=== PATIENT | female | born 1990 | race Caucasian/White ===

== ENCOUNTER 2018-05-04 15:04 | Emergency (ER) | payer SELFPAY ==
[~2018-05-04] VITALS: Ht 157.5 cm; Wt 59.1 kg
[2018-05-04 15:06] VITALS: Ht 157.5 cm; Wt 59.1 kg
[2018-05-04] MEDS ORDERED: ONDANSETRON (ODT) 4 MG TAB ODT STA (16:31)
[2018-05-04] MEDS ORDERED: HYDROCODONE/APAP (5/325) TAB PO ONE (17:00)
[2018-05-04] MEDS ORDERED: HYDR-4011 PO (20:35)
[2018-05-04] MEDS ORDERED: IBUP-1542 PO (20:35)
[2018-05-04] MEDS ORDERED: METH750T93 PO (20:36)
[2018-05-04 20:49] VITALS: BP 123/70; PULSE 73; RESP 18
--- NOTE | 2018-05-04 21:07 | ERD ---
ER Documentation Chief Complaint Chief Complaint right arm stiffness/pain started 20 minustes ago HPI 27yo female presents for right arm stiffness and pain x20 minutes. Pain rated 10/10. She admits to nausea and vomiting. She denies CP, abdominal pain. She took ibuprofen 800mg without relief. ROS All systems reviewed and are negative except as per history of present illness. Medications Home Meds Active Scripts Methocarbamol* (Robaxin*) 750 Mg Tablet, 750 MG PO TID PRN for muscle pain, #30 TAB Prov:PHI LICONA DO 05/04/18 Ibuprofen* (Motrin*) 600 Mg Tab, 600 MG PO Q6H PRN for PAIN, #30 TAB Prov:PHI LICONA DO 05/04/18 Hydrocodone/Acetaminophen (Hope 5-325 Tablet) 1 Each Tablet, 1 TAB PO Q6H PRN for PAIN, #10 TAB Prov:PHI LICONA DO 05/04/18 Allergies Allergies: Coded Allergies: No Known Allergy (Unverified , 05/04/18) PMhx/Soc Medical and Surgical Hx: pt denies Medical Hx History of Surgery: Yes (hx of right arm cast) Hx Neurological Disorder: No Hx Respiratory Disorders: No Hx Cardiac Disorders: No Hx Psychiatric Problems: No Hx Miscellaneous Medical Probl: No Hx Alcohol Use: Yes (occassionally) Hx Substance Use: No Hx Tobacco Use: No Physical Exam Vitals Vital Signs Date Temp Pulse Resp B/P (MAP) Pulse Ox O2 O2 Flow FiO2 Time Delivery Rate 05/04/18 98.0 73 18 123/70 98 Room Air 20:49 (87) 05/04/18 97.7 147 20 135/85 100 15:06 (102) Physical Exam Const: No acute distress Neck: Full range of motion. No meningismus. no midline tenderness Resp: Clear to auscultation bilaterally Cardio: Regular rate and rhythm, no murmurs, bilateral radial pulses intact Skin: No petechiae or rashes Back: No midline or flank tenderness Ext: right arm stiffness and decrease ROM noted, she can move it a little bit, left arm muscle strength intact Neur: Awake and alert, sensation bilateral arms intact Psych: Normal Mood and Affect Results 24 hrs Laboratory Tests Test 05/04/18 16:49 05/04/18 16:51 05/04/18 17:55 Urine Color YELLOW Urine Clarity CLOUDY Urine pH 5.0 Urine Specific [place] 1.027 Urine Ketones NEGATIVE mg/dL Urine Nitrite NEGATIVE mg/dL Urine Bilirubin NEGATIVE mg/dL Urine Urobilinogen NEGATIVE mg/dL Urine Leukocyte Esterase NEGATIVE Isaac/ul Urine Microscopic RBC 7 /HPF Urine Microscopic WBC 3 /HPF Urine Squamous Epithelial Cells FEW /HPF Urine Bacteria FEW /HPF Urine Mucus MANY /HPF Urine Hemoglobin 1+ mg/dL Urine Glucose NEGATIVE mg/dL Urine Total Protein NEGATIVE mg/dl POC Beta HCG, Qualitative NEGATIVE White Blood Count 7.0 10^3/ul Red Blood Count 4.11 10^6/ul Hemoglobin 13.0 g/dl Hematocrit 38.0 % Mean Corpuscular Volume 92.5 fl Mean Corpuscular Hemoglobin 31.6 pg Mean Corpuscular 34.2 g/dl Hemoglobin Concent Red Cell Distribution Width 12.4 % Platelet Count 300 10^3/UL Mean Platelet Volume 11.3 fl Immature Granulocytes % 0.300 % Neutrophils % 74.2 % Lymphocytes % 18.1 % Monocytes % 6.0 % Eosinophils % 0.7 % Basophils % 0.7 % Nucleated Red Blood Cells % 0.0 /100WBC Immature Granulocytes # 0.020 10^3/ul Neutrophils # 5.2 10^3/ul Lymphocytes # 1.3 10^3/ul Monocytes # 0.4 10^3/ul Eosinophils # 0.1 10^3/ul Basophils # 0.1 10^3/ul Nucleated Red Blood Cells # 0.0 10^3/ul Sodium Level 140 mmol/L Potassium Level 4.2 mmol/L Chloride Level 106 mmol/L Carbon Dioxide Level 25 mmol/L Anion Gap 9 Blood Urea Nitrogen 20 mg/dl Creatinine 0.52 mg/dl Est Glomerular Filtrat > 60 mL/min Rate mL/min Glucose Level 94 mg/dl Calcium Level 10.1 mg/dl Total Bilirubin 0.3 mg/dl Direct Bilirubin 0.00 mg/dl Indirect Bilirubin 0.3 mg/dl Aspartate Amino 24 IU/L Transf (AST/SGOT) Alanine 21 IU/L Aminotransferase (ALT/SGPT) Alkaline Phosphatase 74 IU/L Total Protein 8.2 g/dl Albumin 4.9 g/dl Globulin 3.30 g/dl Albumin/Globulin Ratio 1.48 Current Medications Medications Dose Sig/Jania Start Time Status Last (Trade) Ordered Route PRN Stop Time Admin Dose Reason Admin 1 tab ONCE ONCE 05/04/18 DC 05/04/18 Acetaminophen PO 17:00 16:57 / 05/04/18 17:01 Hydrocodone Bitart (Hope (5/325)) Ondansetron 4 mg ONCE STAT 05/04/18 DC 05/04/18 HCl (Zofran ODT 16:31 16:57 Odt) 05/04/18 16:35 Procedures/MDM Medical Decision Making: Differential diagnosis includes but not limited to nerve injury, muscle strain, dystonia. Patient appeared well on physical exam. CBC showed no anemia, no elevated WBC to suggest infection CMP showed no electrolyte abnormalities, there was normal kidney and liver function Urine was negative UA was negative for infection ED course: Patient was given zofran, norco. Symptoms improved with treatment. Prescription(s): Patient given prescription for robaxin, motrin, norco. Patient advised to follow up with PCP in 1-2 days. Patient advised to return to ED for new or worsening symptoms. Patient stable on discharge from the ED. Disclaimer: Inadvertent spelling and grammatical errors are likely due to EHR/dictation software use and do not reflect on the overall quality of patient care. Also, please note that the electronic time recorded on this note does not necessarily reflect the actual time of the patient encounter. Departure Diagnosis: Primary Impression: Pain of right arm Condition: Fair Patient Instructions: Pain Management Referrals: [facility] YOU HAVE RECEIVED A MEDICAL SCREENING EXAM AND THE RESULTS INDICATE THAT YOU DO NOT HAVE A CONDITION THAT REQUIRES URGENT TREATMENT IN THE EMERGENCY DEPARTMENT. FURTHER EVALUATION AND TREATMENT OF YOUR CONDITION CAN WAIT UNTIL YOU ARE SEEN IN YOUR DOCTORS OFFICE WITHIN THE NEXT 1-2 DAYS. IT IS YOUR RESPONSIBILITY TO MAKE AN APPOINTMENT FOR FOLOW-UP CARE. IF YOU HAVE A PRIMARY DOCTOR --you should call your primary doctor and schedule an appointment IF YOU DO NOT HAVE A PRIMARY DOCTOR YOU CAN CALL OUR PHYSICIAN REFERRAL HOTLINE AT IF YOU CAN NOT AFFORD TO SEE A PHYSICIAN YOU CAN CHOSE FROM THE FO[facility] [address] [facility] [address] [facility]. [facility] [address] [facility] [address] [facility]. [facility] [address] [facility]. [facility] [address] Additional Instructions: Call your primary care doctor TOMORROW for an appointment during the next 1-2 days.See the doctor sooner or return here if your condition worsens before your appointment time. PHI LICONA DO May 04, 2018 21:06
== END 2018-05-04 20:53 | disposition home or self-care (01) ==
LOC: FTE 15:04
DX: M79.601 Pain in right arm (principal)
CPT/HCPCS: 80053; 81001; 81025; 85025; 99283